=== PATIENT | female | born 1940 | race Caucasian/White ===

== ENCOUNTER 2018-05-09 09:06 | Outpatient (CLI) | payer MEDICARE ==
[2018-05-09] MEDS ORDERED: Iopamidol 370 76% 100 ML VIAL ONE (14:07)
== END 2018-05-09 09:07 | disposition home or self-care (01) ==
LOC: BICCT 09:06
PROVIDERS: ATTEND Obstetrics & Gynecology
DX: C22.9 Malignant neoplasm of liver, not specified as primary or secondary (principal); K74.60 Unspecified cirrhosis of liver; R16.1 Splenomegaly, not elsewhere classified; I86.8 Varicose veins of other specified sites; R60.0 Localized edema; M47.896 Other spondylosis, lumbar region
CPT/HCPCS: 74177